=== PATIENT | male | born 1960 | race African-American/Black ===

== ENCOUNTER 2018-06-24 09:43 | Outpatient (CLI) | payer BC, MEDICARE ==
--- NOTE | 2018-06-24 11:54 | CT ---
LUMBAR SPINE CT WITHOUT IV CONTRAST: HISTORY: M54.16, lumbar radiculopathy, burning on the outside of the right lower leg for several months, worse when walking. FINDINGS: There is generalized narrowing of the AP dimension of the bony spinal canal from L2 through the L5 le rolo. There are bilateral SI joint ankylosis changes. Very mild lateral recess thinning at L1-L2. At L2-L3, there is mild central canal and moderate bilateral recess stenosis and mild to moderate adrien ateral foraminal stenosis. At L3-L4, there is severe central canal and lateral recess stenosis with mild bilateral foraminal wero nosis. Extensive disk-osteophytosis at L4-L5 with severe central canal and lateral recess stenosis and moder ate bilateral foraminal stenosis. At L5-S1, some disk bulging slightly more focally prominent in the right posterolateral aspect with m oderate central canal and lateral recess stenosis and moderate right and mild left foraminal stenosis . No acute fracture or dislocation. IMPRESSION: Multilevel variable severity canal, lateral recess, and foraminal stenosis. Bilateral sacroiliac catrachito nt ankylosis. POS: OLVIN
== END 2018-06-24 09:44 | disposition home or self-care (01) ==
LOC: BICCT 09:43
PROVIDERS: ATTEND Family Medicine
DX: M54.16 Radiculopathy, lumbar region (principal); M48.061 Spinal stenosis, lumbar region without neurogenic claudication; M43.28 Fusion of spine, sacral and sacrococcygeal region
CPT/HCPCS: 72131

== ENCOUNTER 2019-02-05 22:44 | Emergency (ER) | payer BC, MEDICARE ==
[2019-02-05 23:05] LABS: Bilirubin Small (Negative); Blood, Urine Large (Negative); Clarity Turbid (Clear); Glucose, Urine (Dipstick) Negative (Negative); Leukocyte Moderate (Negative); Nitrite Positive (Negative); Protein, Urine (Dipstick) > or equal to 300 mg/dL (Neg-Trace)
[2019-02-05 23:10] LABS: RBC/HPF Greater than 50 HPF (0-3); Squamous Epithelial 0-3 HPF (0-3)
[2019-02-05 23:11] LABS: Bacteria/HPF 1+ HPF (None Seen)
== END 2019-02-05 23:26 | disposition home or self-care (01) ==
LOC: SCSER 22:44
DX: N39.0 Urinary tract infection, site not specified (principal); I11.0 Hypertensive heart disease with heart failure; I50.9 Heart failure, unspecified; E11.9 Type 2 diabetes mellitus without complications; E78.5 Hyperlipidemia, unspecified
CPT/HCPCS: 81003; 81015; 87086; 99283

== ENCOUNTER 2019-04-29 07:14 | Day surgery (SDC) | payer BC, MEDICARE ==
--- NOTE | 2019-04-29 11:55 | RAD ---
LUMBAR MYELOGRAM: HISTORY: Lumbar pain. Lumbar radiculopathy. COMPARISON: None. FINDINGS: Sample Body Builder: Two views lumbar spine radiograph demonstrates extensive syndesmophytes and the upper lumbar spine. V ertebral body height is maintained. No fracture. No spondylolisthesis or spondylolysis. Disc space heights are preserved. Successful lumbar myelogram. A total of 10 cc of contrast admixture was administered into the central spinal canal. There appears be a mixed injection with contrast in the epidural space as well as the CSF space. EXPOSURE: 7.8 minutes. 8092.8 mcg/m2. TECHNIQUE: Consent obtained to perform a lumbar puncture for lumbar myelogram. The patient's back was evaluated. Initially L4-L5 level was attempted, which was unsuccessful. Additional confirmation at L5-S1 and L2-3-L4 which were unsuccessful. Finally an attempt was made at the L1-L2 level which was successful. Contrast was administered. The patient tolerated the procedure well. No immediate or postprocedure complications. IMPRESSION: Successful lumbar myelogram. Refer to separate myelogram report for further detail. Transcribed Date/Time: 04/29/2019 12:04 PM
[2019-04-29] MEDS ORDERED: Iopamidol-M 200 41% 20 ML VIAL ONE (12:14)
--- NOTE | 2019-04-29 12:37 | CT ---
POST MYELOGRAM LUMBAR SPINE CT: HISTORY: Low back pain. Lumbar radiculopathy. COMPARISON: None. TECHNIQUE: Post myelogram lumbar spine CT is performed in the axial plane. Sagittal and coronal reformatted imag es are submitted for interpretation. FINDINGS: Five lumbar-type vertebrae. Lumbar spine vertebral body height is maintained. No fracture. There is n o spondylolisthesis or spondylolysis. No paraspinal mass, lymphadenopathy or hematoma. Appropriate attenuation of the visualized solid orga ns, paraspinal muscles and alimentary canal. Conus medullaris terminates at the inferior aspect of T12. T11-T12 and T12-L1: No significant central canal stenosis. Moderate bilateral neural foraminal narrow ing. L1-L2: No significant posterior disc abnormality. Minimal ligament flavum thickening and facet hypert rophy. No significant central canal stenosis. Mild bilateral foraminal narrowing. L2-L3: Minimal generalized disc bulge abuts the thecal sac. Minimal ligament flavum thickening and fa cet hypertrophy. Minimal central canal stenosis. Right neural foramen is patent. Moderate left neural foraminal narrowing. L3-L4: Broad-based disc bulge with a left paracentral protrusion. Ligamentum flavum thickening and fa cet hypertrophy. Moderate central canal stenosis. Mass effect and partial obscuration of the traversing left L4 nerve root. Mild bilateral neural foraminal narrowing. L4-L5:Broad-based disc bulge with a central disc protrusion. Disc material encroaches upon both subar ticular zones, left greater than right. Ligamentum flavum thickening and facet hypertrophy, along with posterior epidural lipomatosis result in moderate to severe central canal stenosis. Mass effect and displacement of bilateral traversing L5 nerve roots. Mild to moderate right and moderate to severe left neural foraminal narrowing. L5-S1: Broad-based disc bulge with a central disc protrusion. No significant stenosis of the thecal s ac. Moderate bilateral neural foraminal narrowing. There is fusion of both SI joints. Extensive bridging osteophytes are noted. IMPRESSION: 1. Extensive syndesmosis of the upper lumbar spine along with fusion of the sacroiliac joints. 2. Varying degrees of central canal stenosis and neural foraminal narrowing as detailed above. Transcribed Date/Time: 04/29/2019 12:46 PM
[2019-04-29 15:36] VITALS: BMI 33.4
[2019-04-29 15:37] VITALS: BP 130/78; TEMP 97.9
== END 2019-04-29 11:50 | disposition home or self-care (01) ==
LOC: RAD 07:14
PROVIDERS: ATTEND Neurological Surgery
PROC: B02B1ZZ Computerized Tomography (CT Scan) of Spinal Cord using Low Osmolar Contrast (ICD-10-PCS; principal; 2019-04-29)
DX: M54.16 Radiculopathy, lumbar region (principal); M48.061 Spinal stenosis, lumbar region without neurogenic claudication; I11.0 Hypertensive heart disease with heart failure; I50.9 Heart failure, unspecified; E11.9 Type 2 diabetes mellitus without complications
CPT/HCPCS: 62304; 72132; 77002; Q9966

== ENCOUNTER 2019-06-16 10:28 | Outpatient (CLI) | payer BC, MEDICARE ==
--- NOTE | 2019-06-16 12:33 | RAD ---
LUMBAR SPINE THREE VIEWS: HISTORY: Lumbar spondylosis, Q76.2. Low back pain and right leg pain. TECHNIQUE: Neutral, flexion, extension standing and lateral views of the lumbar spine are performed. FINDINGS: There is some generalized disk osteophytosis and facet arthrosis. No malalignment. No abnormal transl ation between flexion and extension. IMPRESSION: 1. Lumbar spondylosis. 2. No abnormal translation. POS: OFF
== END 2019-06-16 10:29 | disposition home or self-care (01) ==
LOC: TBSIIMAG 10:28
PROVIDERS: ATTEND Neurological Surgery
DX: M47.816 Spondylosis without myelopathy or radiculopathy, lumbar region (principal)
CPT/HCPCS: 72100

== ENCOUNTER 2019-08-05 07:02 | Outpatient (CLI) | payer BC, MEDICARE ==
[2019-08-05 12:50] LABS: Hemoglobin 13.5 g/dL (14.0-18.0); Mean Corpuscular HGB CONC 34.1 g/dL (32.0-36.0); Mean Corpuscular Hemoglobin 31.5 pg (27.0-31.0); Mean Corpuscular Volume 92.5 fL (78.0-98.0); Mean Platelet Volume 7.7 fL (7.4-10.4); Platelet Count 276 thou/uL (130-400); RBC Distribution Width 12.5 % (11.5-14.5); Red Blood Cell (RBC) Count 4.29 mill/uL (4.70-6.10); White Blood Cell (WBC) Count 8.1 thou/uL (4.8-10.8)
[2019-08-05 13:03] LABS: PTT 29.2 SEC (22.9-36.1)
[2019-08-05 13:15] LABS: Anion Gap 12 mmol/L (10-20); BUN (Urea Nitrogen) 13 mg/dL (8.4-25.7); Calc. Creatinine Clearance 0 mL/min (70-130); Calcium 9.2 mg/dL (7.8-10.44); Carbon Dioxide 26 mmol/L (22-29); Chloride 104 mmol/L (98-107); Estimated GFR-MDRD 80; Glucose 140 mg/dL (70-105); Sodium 138 mmol/L (136-145)
== END 2019-08-05 07:03 | disposition home or self-care (01) ==
LOC: LABBT 07:02
PROVIDERS: ATTEND Neurological Surgery
DX: Z01.812 Encounter for preprocedural laboratory examination (principal); M48.061 Spinal stenosis, lumbar region without neurogenic claudication
CPT/HCPCS: 80048; 85027; 85610; 85730; 93005; 93010

== ENCOUNTER 2019-09-29 05:37 | Outpatient (CLI) | payer BC, MEDICARE, OTHER ==
[2019-09-29 11:26] LABS: Hemoglobin 13.4 g/dL (14.0-18.0); Mean Corpuscular HGB CONC 31.4 g/dL (32.0-36.0); Mean Corpuscular Hemoglobin 29.8 pg (27.0-31.0); Mean Corpuscular Volume 94.9 fL (78.0-98.0); Mean Platelet Volume 8.3 fL (7.4-10.4); PTT 30.2 SEC (22.9-36.1); Platelet Count 263 thou/uL (130-400); Prothrombin Time 12.7 sec (12.0-14.7); RBC Distribution Width 12.3 % (11.5-14.5); Red Blood Cell (RBC) Count 4.49 mill/uL (4.70-6.10); White Blood Cell (WBC) Count 7.8 thou/uL (4.8-10.8)
[2019-09-29 11:33] LABS: Anion Gap 12 mmol/L (10-20); BUN (Urea Nitrogen) 13 mg/dL (8.4-25.7); Calc. Creatinine Clearance 0 mL/min (70-130); Calcium 9.8 mg/dL (7.8-10.44); Carbon Dioxide 28 mmol/L (22-29); Chloride 101 mmol/L (98-107); Estimated GFR-MDRD 86; Glucose 134 mg/dL (70-105); Potassium 4.6 mmol/L (3.5-5.1); Sodium 136 mmol/L (136-145)
[2019-09-29 17:17] LABS: SARS-CoV-2 MS2 Positive; SARS-CoV-2 N Gene Negative; SARS-CoV-2 S Gene Negative; SARS-CoV-2 orf1ab Negative
== END 2019-09-29 05:38 | disposition home or self-care (01) ==
LOC: LABBT 05:37
PROVIDERS: ATTEND Neurological Surgery
DX: Z01.812 Encounter for preprocedural laboratory examination (principal); Z11.59 Encounter for screening for other viral diseases; M48.061 Spinal stenosis, lumbar region without neurogenic claudication
CPT/HCPCS: 80048; 85027; 85610; 85730; 87635; 93005; 93010; U0003

== ENCOUNTER 2019-10-03 07:01 | Day surgery (SDC) | payer BC, MEDICARE ==
--- NOTE | 2019-08-10 18:42 | HP ---
Surgery scheduled for August 11. Case #[id number]. CHIEF COMPLAINT: "I'm here for back surgery." HISTORY OF PRESENT ILLNESS: Mr. Crane is a 59-year-old male with back pain radiating to his right leg. He had a myelogram done to assess the mild spinal stenosis. The back and right leg pain continue. He has been going to physical therapy and having injections without permanent relief. He is ready for surgery. His hospitalization will be overnight due to his CHF, diabetes, and Raynaud disease. PAST MEDICAL HISTORY: Hypertension, hypercholesterolemia, diabetes mellitus, CHF, and defibrillator. SURGICAL HISTORY: Defibrillator in 2017, colonoscopy with polyp resected in 2017, cystoscopy, bladder, mild BPH. FAMILY HISTORY: Father , prostate cancer. Mother , diagnosed with hypertension, heart disease. SOCIAL HISTORY: Nonsmoker. , three girls, two boys. Does not drink alcohol. Does not use illicit drugs. Does not drink caffeine. ALLERGIES: NO KNOWN DRUG ALLERGY. CURRENT MEDICATIONS: 1. Magnesium 500 mg. 2. Metformin 1000 mg. 3. Coreg 80 mg. 4. Hydralazine 25 mg. 5. Potassium 20 mEq. 6. Digoxin 250 mcg. 7. Furosemide 40 mg. 8. Spironolactone 25 mg. 9. Pravastatin 10 mg. 10. Entresto 97-103 mg. 11. D3 of 2000 international units. 12. Fish oil 1000 mg. 13. Aspirin 81 mg. 14. Melatonin 3 mg. 15. Flomax 0.4 mg. REVIEW OF SYSTEMS: CONSTITUTION: Denies fever or chills. ENT: Denies change in vision or hearing. CARDIAC: Denies chest pain, shortness of breath, or diaphoresis. PULMONARY: Denies shortness of breath, cough, or hemoptysis. GI: Denies abdominal pain, nausea, vomiting, diarrhea, or change in stool formation or consistency. : Denies trouble with urination, frequency of urination, or bloody urine. SKIN: Denies skin rash, bruising, bleeding, or skin masses. MUSCULOSKELETAL: As per history of present illness. NEUROLOGICAL: As per history of present illness. PSYCHOLOGICAL: Denies anxiety, depression, behavior changes, or crying. PHYSICAL EXAMINATION: HEENT: Pupils are equal. Extraocular movements are intact. NECK: Soft, supple. No masses are noted. Range of motion is intact and nonpainful. NEUROLOGICAL: Awake, alert, and oriented x3. Memory, attention, fund of knowledge normal. Gait and station are normal. Motor exam; there is normal strength in the iliopsoas, quadriceps, hamstrings, anterior tib, EHL, gastroc, and toe flexors. Sensory exam, stocking distribution, sensory loss. IMAGING: Myelogram, disks in the lower lumbar spine are protruding but calcified. The canal is severely stenosed at L3-4, L4-5, and L5-S1. X-rays of the flexion-extension results showed no instability, therefore no fusion. ASSESSMENT: 1. Lumbar stenosis with neurogenic claudication. 2. Lumbar radiculopathy. PLAN: 1. Laminectomy and foraminotomies. 2. Health concerns make outpatient surgery unwise. 3. Need careful clearance for anesthesia. INFORMED CONSENT: We discussed the indications, risks, benefits, alternatives, and expected results from the surgery. The risks discussed included, but were not limited to, bleeding, infection, CSF leak, nerve damage, weakness, incontinence, cauda equina arachnoiditis, paralysis, ventilator dependency, wheelchair dependency, loss of vision, cardiopulmonary complications of anesthesia or . Long-term complications discussed included, but were not limited to spinal instability and future surgery. He understands the risk and is willing to proceed. Job ID: [id number] [facility]
[2019-09-29 08:28] VITALS: BMI 34.4
[2019-10-03] MEDS ORDERED: Bupivacaine PF 0.5% 30 ML VIAL ONE (09:28)
[2019-10-03] MEDS ORDERED: Thrombin 5000 UNITS/5 ML VIAL ONE (09:28)
[2019-10-03] MEDS ORDERED: EPINEPHrine 1 MG/ML AMP ONE (09:28)
[2019-10-03] MEDS ORDERED: Ketamine 50 MG/ML (10ML VIAL) ONE (09:42)
[2019-10-03] MEDS ORDERED: Fentanyl 100 MCG/2 ML VIAL ONE ×4 (09:51→14:28)
[2019-10-03] MEDS ORDERED: Midazolam HCl 2 mg/2 ml Vial ONE (09:51)
[2019-10-03] MEDS ORDERED: Phenylephrine 10 MG/ML VIAL ONE (11:04)
[2019-10-03] MEDS ORDERED: Rocuronium Bromide 10 MG/ML (10ML VIAL) ONE (11:18)
[2019-10-03] MEDS ORDERED: diphenhydrAMINE 50 MG/ML VIAL ONE (11:18)
[2019-10-03] MEDS ORDERED: EPHEDRINE 25 MG/5 ML SYRINGE ONE (11:18)
[2019-10-03] MEDS ORDERED: Ondansetron PF 4 MG/2 ML Vial ONE (11:18)
[2019-10-03] MEDS ORDERED: Lidocaine 1% PF 5 ML VIAL ONE (11:18)
[2019-10-03] MEDS ORDERED: PROPOFOL 200 MG/20 ML VIAL ONE (11:18)
[2019-10-03] MEDS ORDERED: Glycopyrrolate 0.2 MG/ML 5 ML SYRINGE ONE (11:18)
[2019-10-03] MEDS ORDERED: PHENYLEPHRINE-NS 100 MCG/ML 10 ML SYRINGE ONE (11:18)
[2019-10-03] MEDS ORDERED: traMADol HCl 50 MG TAB PO PRN (12:58)
[2019-10-03] MEDS ORDERED: Acetaminophen 325 MG TAB PO PRN (12:58)
[2019-10-03] MEDS ORDERED: Mag-Al 1200 mg/1200 mg/30 ML UDCUP PO PRN (12:58)
[2019-10-03] MEDS ORDERED: Promethazine 25 MG TAB PO PRN (12:58)
[2019-10-03] MEDS ORDERED: Ondansetron PF 4 MG/2 ML Vial IVP PRN (12:58)
[2019-10-03] MEDS ORDERED: HYDROcodone/Acetaminophen 7.5/325 mg Tablet PO PRN (12:58)
[2019-10-03] MEDS ORDERED: Milk Of Magnesia 30 ML UDCUP PO PRN (12:58)
[2019-10-03] MEDS ORDERED: diphenhydrAMINE 25 MG CAP PO PRN (12:58)
[2019-10-03] MEDS ORDERED: Prochlorperazine 10 MG/2 ML VIAL IM PRN (12:58)
[2019-10-03] MEDS ORDERED: Morphine 2 MG/ML SYRINGE SLOW IVP PRN (12:58)
[2019-10-03] MEDS ORDERED: Scopolamine 1.5 mg/72 hour Patch TD SCH (13:00)
[2019-10-03] MEDS ORDERED: Promethazine HCl 25 MG/ML VIAL IM PRN (13:19)
[2019-10-03] MEDS ORDERED: Ondansetron HCl/PF 4 MG/2 ML Vial IVP PRN (13:19)
[2019-10-03] MEDS ORDERED: Meperidine HCl/PF 25 MG/ML VIAL SLOW IVP PRN (13:19)
[2019-10-03] MEDS ORDERED: HYDROmorphone 2 MG/ML VIAL SLOW IVP PRN (13:19)
[2019-10-03] MEDS: CEFAZOLIN 2 GM in Premix Bag 1 BAG IVPB SCH (17:54)
[2019-10-03] MEDS: HYDROcodone/Acetaminophen 10/325 mg Tablet PO PRN ×2 (17:59→22:33)
[2019-10-03] MEDS: Sodium Chloride 0.9% 1,000 ML IV SCH ×2 (18:42→23:39)
--- NOTE | 2019-10-03 19:12 | OP ---
DATE OF PROCEDURE: 10/03/2019 ANIMAL CONTROL SUPERVISOR: Douglas House PA-C PREOPERATIVE INDICATION: Treat pain and prevent neurological deterioration. PREOPERATIVE DIAGNOSIS: Multilevel lumbar stenosis with severe neurogenic claudication. POSTOPERATIVE DIAGNOSIS: Multilevel lumbar stenosis with severe neurogenic claudication. PROCEDURES PERFORMED: Decompressive laminectomy, medial facetectomy, foraminotomy at L3-L4, L4-L5, and L5-S1. PREOPERATIVE MEDICATIONS: Ancef 2 g IV. DRAIN NUMBER: Zero. DRAIN TYPE: None. DESCRIPTION OF PROCEDURE: The patient was brought to the operating room. General endotracheal anesthesia was induced. The patient was positioned prone on the operative table with the chest and hips supported by gel-filled chest rolls. A lateral fluoro radiograph was used to plan our incision. The lumbar skin was sterilely prepped and draped. We opened with a 10-blade knife and controlled bleeding with bipolar and monopolar cautery. We used monopolar cautery to dissect through subcutaneous tissues to the cervical dorsal fascia. We incised the fascia in the midline and reflected the paraspinal muscles off the spinous process and lamina of L3, L4, L5, and S1. A self-retaining retractor was placed. A lateral fluoro radiograph confirmed the levels upon which we were operating. We then used an Adson rongeur to remove the spinous processes from L3-S1. Adson and Leksell rongeurs were used to thin the lamina, and a Kerrison rongeur was used to fashion a laminectomy down the midline from the L5 to the pedicles of L3. We had to widen our laminectomy defect with Kerrison rongeurs by performing medial facetectomies and undermining the lateral recesses in order to decompress adequately. We performed foraminotomies over each of the exiting nerve roots. We made sure the Nation ball probe could pass through the lateral recess and out the foramen with the L3, L4, L5, and S1 nerve roots bilaterally. We then irrigated with bacitracin irrigation. We controlled bleeding with gentle bipolar cautery. We waxed the bone edges. We infused local anesthetic in the paraspinal muscles. We treated the wound with vancomycin powder. We closed in anatomical layers, and we applied a sterile dressing. This was a clean case, no contamination. Job ID: [id number]
[2019-10-03] MEDS: Carvedilol 25 MG TAB PO SCH (20:56)
[2019-10-03] MEDS: Magnesium Oxide 250 MG TAB PO SCH (20:58)
[2019-10-03] MEDS: hydrALAZINE 25 MG TAB PO SCH (20:58)
[2019-10-03] MEDS: tiZANidine HCl 4 MG TAB PO PRN (20:59)
[2019-10-03] MEDS ORDERED: Simvastatin 5 MG TAB PO SCH (21:00)
[2019-10-03] MEDS ORDERED: Melatonin 3 MG TAB PO SCH (21:00)
[2019-10-04] MEDS: HYDROcodone/Acetaminophen 10/325 mg Tablet PO PRN ×3 (02:18→11:56)
[2019-10-04] MEDS: CEFAZOLIN 2 GM in Premix Bag 1 BAG IVPB SCH (02:18)
[2019-10-04] MEDS ORDERED: Tamsulosin HCl 0.4 MG CAP PO SCH ×2 (06:00→09:00)
[2019-10-04] MEDS: tiZANidine HCl 4 MG TAB PO PRN (06:10)
--- NOTE | 2019-10-04 06:45 | PRG ---
DATE OF SERVICE: 10/04/2019 Mr. Crane is one day out from L3-S1 decompressive laminectomy. The radiating pain down the legs has gone. The back is sore. He is happy with the results of the operation thus far. No fevers have been recorded overnight. Blood pressures have been in the 120s to 130s. There is no new neurological deficit in the lower extremities. He is ambulatory. Mr. Crane is ready for discharge. I went over activity restrictions, followup arrangements. Job ID: [id number]
[2019-10-04] MEDS ORDERED: metFORMIN 500 MG TAB PO SCH (08:00)
[2019-10-04 08:01] VITALS: BP 113/57; TEMP 97.8
[2019-10-04] MEDS ORDERED: Digoxin 0.25 MG TAB PO SCH (09:00)
[2019-10-04] MEDS ORDERED: Spironolactone 25 MG TAB PO SCH (09:00)
[2019-10-04] MEDS ORDERED: Amlodipine 10 MG TAB PO SCH (09:00)
[2019-10-04] MEDS ORDERED: Potassium Chloride 20 MEQ TAB PO SCH (09:00)
[2019-10-04] MEDS ORDERED: Aspirin 81 mg Enteric Coated Tablet PO SCH (09:00)
[2019-10-04] MEDS ORDERED: Furosemide 40 MG TAB PO SCH (09:00)
[2019-10-04] MEDS: Magnesium Oxide 250 MG TAB PO SCH (09:55)
[2019-10-04] MEDS: hydrALAZINE 25 MG TAB PO SCH (09:55)
[2019-10-04] MEDS: Carvedilol 25 MG TAB PO SCH (10:12)
[2019-10-04] MEDS: Sodium Chloride 0.9% 1,000 ML IV SCH (10:12)
--- NOTE | 2019-10-05 13:48 | DIS ---
DATE OF ADMISSION: 10/03/2019 DATE OF DISCHARGE: 10/04/2019 HOSPITAL COURSE: Dat Crane is a 59-year-old male with back pain radiating to his right leg. He has one day from L3-S1 decompressive laminectomy. He stated the pain radiating down his legs has gone. He was observed overnight in the med/surge floor due to his CHF, diabetes, and Raynaud disease. States he is happy with the results of his operation. His pain has been well controlled with p.o. medications. He is tolerating a regular diet. He is voiding appropriately. He is otherwise doing well and ambulating easily in the halls always and feels that he is ready to go home today. PHYSICAL EXAMINATION: GENERAL: He is awake and alert, in no acute distress. EXTREMITIES: He has free active range of motion in all extremities. No focal motor weakness. No reflex asymmetry. His incision is clean, dry, and intact. VITAL SIGNS: No fevers have been recorded overnight. Blood pressures have been in the 120s to 130s. Mr. Crane is ready for discharge. We will plan to discharge the patient home. CONDITIONS ON DISCHARGE: The patient has no emergencies. Condition was stable for discharge. MEDICATIONS: Home going medications were reviewed and sent to his Pharmacy. FOLLOWUP: Followup arrangements made by our head start coordinator in the clinic and call to the patient. ACTIVITIES: Restrictions were reviewed in person. Wound care showers are acceptable. The patient should pat the incision dry, but not submerge it under the surface of the body of water for 2 months. Job ID: [id number]
== END 2019-10-04 12:00 | disposition home or self-care (01) ==
LOC: SDC 07:01 → SURG B 15:41 → SDC 10-04 12:00
PROVIDERS: ATTEND Neurological Surgery
PROC: 01NB0ZZ Release Lumbar Nerve, Open Approach (ICD-10-PCS; principal; 2019-10-03)
DX: M48.062 Spinal stenosis, lumbar region with neurogenic claudication (principal); M54.16 Radiculopathy, lumbar region; I11.0 Hypertensive heart disease with heart failure; I50.40 Unspecified combined systolic (congestive) and diastolic (congestive) heart failure; E78.00 Pure hypercholesterolemia, unspecified; E11.9 Type 2 diabetes mellitus without complications; I73.00 Raynaud's syndrome without gangrene; Z79.82 Long term (current) use of aspirin; Z79.84 Long term (current) use of oral hypoglycemic drugs; Z79.899 Other long term (current) drug therapy; Z95.810 Presence of automatic (implantable) cardiac defibrillator
CPT/HCPCS: 76000; J0171; J0690; J1200; J2001; J2250; J2370; J2405; J2704; J3010; J3370; S0020